=== PATIENT | male | born 1955 | race African-American/Black ===

== ENCOUNTER 2018-02-26 15:36 | Inpatient (IN) | payer BC ==
[~2018-02-26] VITALS: Ht 190.5 cm; Wt 91.9 kg
--- NOTE | 2018-02-26 16:04 | NUR ---
TO TX ROOM VIA W/C
--- NOTE | 2018-02-26 16:30 | NUR ---
PT AMBULATED TO BATHROOM WITH A STEADY GAIT, TO OBTAIN URINE SAMPLE.
--- NOTE | 2018-02-26 17:05 | NUR ---
IV INITATED, LABS AND FLU SWAB COLLECTED. PT DENIES ANY DIZZINESS AT THIS TIME. PT AWARE OF PLAN OF CARE AND WAIT TIME. MONITOR SHOWING 112 AT THIS TIME. CALL FORD WITHIN REACH, WILL CONTINUE TO MONITOR.
[2018-02-26 17:22] LABS: HEMATOCRIT 55.6 % (39.0-50.0); HEMOGLOBIN 17.8 g/dl (14.0-18.0); IMMATURE GRANULOCYTES 0.2 % (0.0-5.0); MEAN CELL VOLUME 94.2 fL CALC (80.0-100.0); MEAN CORPUSCULAR HGB 30.2 pG CALC (26.0-32.0); NEUT# 4.45 thou/uL (1.82-7.42); RED BLOOD COUNT 5.9 mill/uL (4.70-6.10); RED CELL DISTRI WIDTH 13.3 % (11.5-15.5)
[2018-02-26 17:25] LABS: URINE BILIRUBIN - DIPSTICK NEGATIVE (NEGATIVE); URINE BLOOD DIPSTICK SMALL (NEGATIVE); URINE COLOR YELLOW; URINE GLUCOSE - DIPSTICK >=1000 mg/dL (NEGATIVE); URINE KETONE 15 mg/dL (NEGATIVE); URINE LEUK ESTERASE NEGATIVE (NEGATIVE); URINE NITRITE - DIPSTICK NEGATIVE (Negative); URINE PROTEIN - DIPSTICK NEGATIVE (NEG-TRACE); URINE SPECIFIC GRAVITY <=1.005; URINE UROBILINOGEN - DIPSTICK 0.2 E.U./dL (0.2)
[2018-02-26 17:28] LABS: URINE CLARITY CLEAR
[2018-02-26 17:40] LABS: URINE WBC 0-2 WBC/hpf (0-5)
[2018-02-26 17:41] LABS: INFLUENZA A NONE DETECTED (NONE DETECT); INFLUENZA B NONE DETECTED (NONE DETECT)
--- NOTE | 2018-02-26 17:45 | NUR ---
PT AMBULATED TO BATHROOM WITH A STEADY GAIT. PT AWARE OF PENDING RESULTS AND WAIT TIME.
--- NOTE | 2018-02-26 18:15 | NUR ---
IV FLUIDS AND IV ABX INITIATED PRE ORDERED. PT AWARE OF PENDING RESULTS AND PLAN OF CARE. CALL FORD WITHIN REACH. [T AWARE OF BUSY ED AND WAIT TIME. CALL FORD WITHIN REACH.
[2018-02-26 18:18] LABS: BUN 27 mg/dL (8-23); BUN/CREATININE RATIO 15 (12-20 (CALC)); CARBON DIOXIDE 21 mmol/l (22-30); CHLORIDE 103 mmol/l (95-108); CREATININE 1.8 mg/dL (0.7-1.3); GFR 38 ML/MIN (>=60 (CALC)); GFR FOR AFR.AMER. 46 ML/MIN (>=60 (CALC)); SODIUM 142 mmol/l (137-146)
[2018-02-26 18:35] LABS: ANION GAP 24 (6-22 (CALC)); POTASSIUM 6.3 mmol/l (3.5-5.1)
--- NOTE | 2018-02-26 18:50 | NUR ---
PT REPORT TO INEZ PITTMAN.
--- NOTE | 2018-02-26 18:55 | NUR ---
SECOND IV INITIATED. PT IS AWARE OF PLAN FOR FURTHER TESTING AND WAIT TIME. CALL FORD WITHIN REACH.
--- NOTE | 2018-02-26 20:39 | NUR ---
PT TO CT.
--- NOTE | 2018-02-26 20:50 | NUR ---
REPORT CALLED TO MARANDA WILEY.
--- NOTE | 2018-02-26 20:59 | NUR ---
RETURNED FROM CT.
--- NOTE | 2018-02-26 21:18 | NUR ---
BRYCE HALEY. DR MENDOZA PINZON.
[2018-02-26 21:45] LABS: ALBUMIN 3.7 g/dL (3.2-5.0); BILIRUBIN, TOTAL 0.6 mg/dL (0.0-1.4); CREATININE 1.6 mg/dL (0.7-1.3); TOTAL PROTEIN 6.7 g/dL (6.3-8.2)
[2018-02-26 21:55] LABS: POTASSIUM 4.9 mmol/l (3.5-5.1)
--- NOTE | 2018-02-26 21:56 | NUR ---
INSULIN GTT INCREASED TO 10UNITS/HR. VERBAL ORDER DR DONALDSON. HYUNACK AND VERIFIED.
--- NOTE | 2018-02-26 22:58 | NUR ---
ACCUCHECK 377. DR DONALDSON AWARE. VERBAL ORDER DR DONALDSON, DECREASE INSULIN GTT TO 4 UNITS/HR, FOLLOW PROTOCAL. REBACK AND VERIFIED.
--- NOTE | 2018-02-26 23:13 | NUR ---
REPORT CALLED TO [facility] ICU.
--- NOTE | 2018-02-26 23:45 | NUR ---
PT TO ICU BED 5 VIA STRETCHER ACCOMPANIED BY ER STAFF. PT ABLE TO AMBULATE TO BED WITH MINIMAL ASSISTANCE. PT IS ALERT AND ORIENTED X3. ADMISSION ASSESSMENT COMPLETED AT THIS TIME. PT ORIENTED TO ROOM AND UNIT. PLAN OF CARE REVIEWED WITH PATIENT. PT VERBALIZED UNDERSTANDING. ACCUCHECK 358. LEVEMIR GIVEN PER MD ORDERS. WILL MAINTAIN INSULIN DRIP FOR 1 HOUR THEN DC PER MD ORDERS. CALL LIGHT IN REACH. WILL CONTINUE TO MONITOR.
[2018-02-27] VITALS (12 sets, daily range): BP systolic 113–161; BP diastolic 66–92
--- NOTE | 2018-02-27 00:01 | NUR ---
PT TO ICU ON MONITOR WITH RN AND IV PUMP.
--- NOTE | 2018-02-27 00:01 | NUR ---
PT AWAKE AND ALERT,COND STABLE.
--- NOTE | 2018-02-27 00:22 | NUR ---
ASSOCIATION EXECUTIVE IN ROOM DRAWING REPEAT LACTIC LEVEL.
--- NOTE | 2018-02-27 00:52 | NUR ---
LAB CALLED AND STATED THAT LACTIC IS NOW 2.4. DR LINDA ALREADY AWARE OF ELEVATION. TREATMENT ALREADY IN PROGRESS
--- NOTE | 2018-02-27 01:00 | NUR ---
PT RESTING IN BED WITH EYES CLOSED. PT AROUSES TO VERAL STIMULI. NO COMPLAINTS VOICED AT THIS TIME. ACCUCHECK 330. STOPPED INSULIN DRIP PER MD ORDER AFTER LEVEMIR GIVEN 1 HOUR AGO. CALL LIGHT IN REACH. WILL CONTINUE TO MONITOR.
--- NOTE | 2018-02-27 01:50 | NUR ---
PT RESTING IN BED WITH EYES CLOSED. RESP ARE EVEN AND UNLABORED. NO DISTRESS NOTED. CALL LIGHT IN REACH. WILL CONTINUE OT MONITOR.
--- NOTE | 2018-02-27 04:00 | NUR ---
PT RESTING IN BED WITH EYES CLOSED. RESP ARE EVEN AND UNLABORED. NO DISTRESS NOTED. LILIAM SR ON MONITOR. CALL LIGHT IN REACH. WILL CONTINUE TO M ONITOR
--- NOTE | 2018-02-27 05:02 | NUR ---
RUN BOAT OPERATOR INTO ROOM TO DRAW AM LABS
[2018-02-27 05:22] LABS: MEAN CELL VOLUME 96.2 fL CALC (80.0-100.0); MEAN CORPUSCULAR HGB CONC 32.2 g/L CALC (32.0-36.0); RED BLOOD COUNT 4.71 mill/uL (4.70-6.10); RED CELL DISTRI WIDTH 13.3 % (11.5-15.5)
[2018-02-27 05:28] LABS: HEMOGLOBIN 14.6 g/dl (14.0-18.0)
[2018-02-27 05:29] LABS: HEMATOCRIT 45.3 % (39.0-50.0); PLATELET COUNT 164 thou/uL (130-400)
[2018-02-27 05:33] LABS: ANION GAP 12 (6-22 (CALC)); BUN 21 mg/dL (8-23); BUN/CREATININE RATIO 17 (12-20 (CALC)); CALCULATED LDLCHOLESTEROL 154 mg/dL (62-129 (CALC)); CARBON DIOXIDE 23 mmol/l (22-30); CHLORIDE 118 mmol/l (95-108); CHOLESTEROL HDL RATIO 6.2 (<4.4 (CALC)); CREATININE 1.2 mg/dL (0.7-1.3); GFR > 60 ML/MIN (>=60 (CALC)); GFR FOR AFR.AMER. > 60 ML/MIN (>=60 (CALC)); HDL CHOLESTEROL 35 mg/dL (>=40); MAGNESIUM 2.2 mg/dL (1.6-2.3); POTASSIUM 4.6 mmol/l (3.5-5.1); SODIUM 148 mmol/l (137-146); TOTAL CHOLESTEROL 217 mg/dl (0-199); TOTAL TRIGLYCERIDES 136 mg/dl (30-149); VLDL CHOLESTROL 27 mg/dl (4-45 (CALC))
--- NOTE | 2018-02-27 06:00 | NUR ---
PT RESTING IN BED WITH EYES CLOSED. RESP ARE EVEN AND UNLABORED. NO DISTRESS NOTED. CALL LIGHT IN REACH. WILL CONTINUE TO MONITOR.
--- NOTE | 2018-02-27 08:36 | NUR ---
PT SEEN AWAKE, ALERT, ORIENTED X 3. LUNGS CLEAR, AMBULATORY IN ROOM WITHOUT IMBALANCE. PT STATES HE CONTINUES TO FEEL WEAKNESS THIS MORNING, ALTHOUGH IT HAS IMPROVED SINCE YESTERDAY. PT DENIES HX DIABETES.
--- NOTE | 2018-02-27 10:31 | NUR ---
PT SEEN BY DR QUEVEDO THIS MORNING, STATES WEAKNESS IMPROVED BUT NOT ALL GONE. NO FAMILY HX DIABETES. IVF STOPPED PER ORDER, PT NOW NPO UNTIL AFTER U/S ABDOMEN. NO DISTRESS, PT RESTS IN THE BED WATCHING TV.
--- NOTE | 2018-02-27 11:10 | NUR ---
PT TRANSFERRED TO MED/SURG ROOM 277 AT THIS TIME IN STABLE CONDITION. REPORT WAS TO JOHN WILEY.
--- NOTE | 2018-02-27 12:47 | NUR ---
REPORT RECRIVED FROM GIOVANI IN ICU, PT ARRIVED ON UNIT @ 1104 VIA WC, ALERT AND ORIENTED X 4, ORIENTED TO AND SETTLED IN ROOM, ORIENTED TO CALL FORD, DEDIED PAIN/DISCOMFORT, ALL NEEDS ADDRESSED, CALL FORD IN REACH.
--- NOTE | 2018-02-27 19:00 | NUR ---
REPORT RECIEVEN FROM [facility]. PT IN BED. NO COMPLAINTS OF PAIN VOICED. NO DISTRESS NOTED.
[2018-02-28 00:24] VITALS: BP 117/75
[2018-02-28 04:21] VITALS: BP 141/84
[2018-02-28 05:05] LABS: HEMOGLOBIN 14.9 g/dl (14.0-18.0); IMMATURE GRANULOCYTES 0.2 % (0.0-5.0); MEAN CELL VOLUME 95.7 fL CALC (80.0-100.0); MEAN CORPUSCULAR HGB 30.3 pG CALC (26.0-32.0); MEAN CORPUSCULAR HGB CONC 31.7 g/L CALC (32.0-36.0); NEUT# 2.81 thou/uL (1.82-7.42); RED BLOOD COUNT 4.91 mill/uL (4.70-6.10); RED CELL DISTRI WIDTH 13.1 % (11.5-15.5)
[2018-02-28 05:22] LABS: ALBUMIN 3.3 g/dL (3.2-5.0); ALKALINE PHOSPHATASE 111 u/l (38-126); ANION GAP 9 (6-22 (CALC)); BILIRUBIN, TOTAL 0.7 mg/dL (0.0-1.4); BUN 20 mg/dL (8-23); BUN/CREATININE RATIO 18 (12-20 (CALC)); CARBON DIOXIDE 27 mmol/l (22-30); CHLORIDE 111 mmol/l (95-108); CREATININE 1.2 mg/dL (0.7-1.3); GFR > 60 ML/MIN (>=60 (CALC)); GFR FOR AFR.AMER. > 60 ML/MIN (>=60 (CALC)); MAGNESIUM 1.9 mg/dL (1.6-2.3); POTASSIUM 4.1 mmol/l (3.5-5.1); SGOT/AST 77 u/l (19-48); SODIUM 143 mmol/l (137-146); TOTAL PROTEIN 6.3 g/dL (6.3-8.2)
--- NOTE | 2018-02-28 07:00 | NUR ---
RECIEVED REPORT FROM SEAMUS WILEY. PT ASLEEP AT THIS TIME. NO S/S OF DISTRESS.
--- NOTE | 2018-02-28 07:40 | NUR ---
PT RESTING IN BED WITH EYES CLOSED. NO S/S OF DISTRESS. ASSESMENT COMPLETED AT THIS TIME(SEE INTERVENTIONS). LUNGS CLEAR, BOWEL SOUNDS ACTIVE, HEART SOUNDS NORMAL, NO SWELLING OR EDEMA. #20 LH AND #20 RAC FLUSH WELL, NO REDNESS OR EDEMA. PT HAVING NO COMPLAINTS AT THIS TIME. CALL FORD IN REACH. WILL CONTINUE TO MONITOR.
[2018-02-28 11:15] VITALS: BP 131/86
--- NOTE | 2018-02-28 12:00 | NUR ---
RESTING IN CHAIR AT THIS TIME. NO S/S OF DISTRESS. WILL CONTINUE TO MONITOR
--- NOTE | 2018-02-28 13:48 | NUR ---
Patient not currently on any home medications. Patient counseled on the uses of medications he is taking in the hospital. Patient had no further questions.
[2018-02-28] MEDS ORDERED: JANUVIA50 MG PO (14:56)
[2018-02-28] MEDS ORDERED: AMARYL2 MG PO (14:56)
[2018-02-28] MEDS ORDERED: LISINOPRIL5 MG PO (14:57)
--- NOTE | 2018-02-28 16:30 | NUR ---
ENTERED ROOM VISITOR AT BEDSIDE, WENT IN WITH DETAIL OF [employer] DIABETIC DIET INFORMATION, MYPLATE INFORMATION, DISCUSSED NEW MEDICATION PRESCRIBED TO PT. PT VERBALLY EDUCATED ON CHECKING BLOOD SUGAR, PT DEMONSTRATED USE WITH HOSPITAL ACCUCHECK MACHINE. DISCHARGE PACKET PROVIDED, PT SIGNED PAPERWORK AND IV'S X2 REMOVED AND COVERED WITH GAUZE AND TAPE. PT VOICES NO COMPLAINTS, VERBALIZED UNDERSTANDING TO TEACHING.
--- NOTE | 2018-02-28 16:58 | NUR ---
Discharge instructions given. Patient verbalizes understanding of same. Discharged in stable condition via Ambulatory to Home with family. All belongings sent with pt.
== END 2018-02-28 16:58 | disposition home or self-care (01) | DRG 638 ==
LOC: ED 15:36 → ED-I 16:21 → ED 16:21 → ED-I 20:00 → ED 22:20 → ICU 22:21 → MS2 22:21
PROVIDERS: Emergency Medicine; Family Medicine; ADMIT Internal Medicine; ATTEND Internal Medicine Nephrology
DX: E11.10 Type 2 diabetes mellitus with ketoacidosis without coma (principal); N17.9 Acute kidney failure, unspecified; I10 Essential (primary) hypertension; E86.0 Dehydration; E78.5 Hyperlipidemia, unspecified; K72.90 Hepatic failure, unspecified without coma; I49.1 Atrial premature depolarization; N28.1 Cyst of kidney, acquired
CPT/HCPCS: Q9967

== ENCOUNTER 2019-07-31 | Emergency (ER) | payer MEDICARE ==
[~2019-07-31] MED LIST: AMARYL2 MG PO; JANUVIA50 MG PO; LISINOPRIL5 MG PO
[2019-07-31] MEDS ORDERED: DIABETES MED (21:12)
[2019-07-31 21:58] LABS: URINE BILIRUBIN - DIPSTICK NEGATIVE (NEGATIVE); URINE BLOOD DIPSTICK TRACE-INTACT (NEGATIVE); URINE COLOR YELLOW; URINE GLUCOSE - DIPSTICK NEGATIVE (NEGATIVE); URINE KETONE TRACE mg/dL (NEGATIVE); URINE LEUK ESTERASE NEGATIVE (NEGATIVE); URINE NITRITE - DIPSTICK NEGATIVE (Negative); URINE PROTEIN - DIPSTICK TRACE mg/dL (NEG-TRACE); URINE SPECIFIC GRAVITY 1.025; URINE UROBILINOGEN - DIPSTICK 0.2 E.U./dL (0.2)
[2019-07-31 22:00] LABS: HEMATOCRIT 48.8 % (39.0-50.0); HEMOGLOBIN 15.7 g/dl (14.0-18.0); IMMATURE GRANULOCYTES 0.4 % (0.0-5.0); MEAN CELL VOLUME 90.7 fL CALC (80.0-100.0); MEAN CORPUSCULAR HGB 29.2 pG CALC (26.0-32.0); MEAN CORPUSCULAR HGB CONC 32.2 g/dL CAL (32.0-36.0); NEUT# 2.32 thou/uL (1.82-7.42); RED BLOOD COUNT 5.38 mill/uL (4.70-6.10); RED CELL DISTRI WIDTH 12.7 % (11.5-15.5)
[2019-07-31 22:18] LABS: ALKALINE PHOSPHATASE 132 u/l (38-126); ANION GAP 15 (6-22 (CALC)); BUN 19 mg/dL (8-23); BUN/CREATININE RATIO 11 (12-20 (CALC)); CARBON DIOXIDE 26 mmol/l (22-30); CHLORIDE 104 mmol/l (95-108); CREATININE 1.8 mg/dL (0.7-1.3); GFR 38 ML/MIN (>=60 (CALC)); GFR FOR AFR.AMER. 46 ML/MIN (>=60 (CALC)); POTASSIUM 4.6 mmol/l (3.5-5.1); PROTHROMBIN TIME 10.7 SECONDS (9.0-12.5); SGOT/AST 42 u/l (19-48); SODIUM 141 mmol/l (137-146)
[2019-07-31 22:24] LABS: ALBUMIN 4.8 g/dL (3.2-5.0); BILIRUBIN, TOTAL 0.4 mg/dL (0.0-1.4); TOTAL PROTEIN 8.4 g/dL (6.3-8.2)
[2019-07-31 22:30] LABS: MYOGLOBIN 101 ng/mL (0 - 121)
== END 2019-07-31 23:00 | disposition home or self-care (01) ==
PROVIDERS: Family Medicine
DX: R42 Dizziness and giddiness (principal); I10 Essential (primary) hypertension; S01.21XA Laceration without foreign body of nose, initial encounter; E11.9 Type 2 diabetes mellitus without complications; W18.39XA Other fall on same level, initial encounter; Y92.000 Kitchen of unspecified non-institutional (private) residence as the place of occurrence of the external cause

== ENCOUNTER 2019-08-01 15:00 | Emergency (ER) | payer MEDICARE ==
[~2019-08-01 15:00] MED LIST changes: +DIABETES MED
== END 2019-08-01 15:07 | disposition left against medical advice (07) ==
LOC: ED 15:00 → LWOBS 15:07
DX: Z53.21 Procedure and treatment not carried out due to patient leaving prior to being seen by health care provider (principal)

== ENCOUNTER 2023-10-27 18:48 | Observation (INO) | payer MEDICARE ==
[~2023-10-27] VITALS: Ht 190.5 cm; Wt 92.4 kg
[2023-10-27] VITALS (13 sets, daily range): BP systolic 107–139; BP diastolic 69–113
[2023-10-27] MEDS ORDERED: NITROGLYCERIN 0.4 MG/TAB SL ONE (18:55)
[2023-10-27] MEDS ORDERED: ASPIRIN 81 MG/TAB PO ONE (18:55)
[2023-10-27] MEDS ORDERED: FARXIGA5 MG (19:03)
[2023-10-27 19:16] LABS: BASO% 1.1 % (0-3); EOS% 6.8 % (0-8); HEMOGLOBIN 15.4 g/dl (14.0-18.0); LYMPH% 54.6 % (15-41); MEAN CORPUSCULAR HGB 29.6 pG CALC (26.0-32.0); MEAN CORPUSCULAR HGB CONC 31.4 g/dL CAL (32.0-36.0); MONO% 10.7 % (2-13); NEUT# 1.22 thou/uL (1.82-7.42); NEUT% 26.8 % (42-76); RED BLOOD COUNT 5.21 mill/uL (4.70-6.10); RED CELL DISTRI WIDTH 13.2 % (11.5-15.5)
[2023-10-27 19:37] LABS: ALBUMIN 4.8 g/dL (3.2-5.0); ALKALINE PHOSPHATASE 120 u/l (38-126); ANION GAP 9 (6-22 (CALC)); BUN 18 mg/dL (8-23); BUN/CREATININE RATIO 11 (12-20 (CALC)); CARBON DIOXIDE 29 mmol/l (22-30); CHLORIDE 108 mmol/l (95-108); CREATININE 1.7 mg/dL (0.7-1.3); ESTIMATED GFR 43 ML/MIN (>=90 (CALC)); LIPASE 170 u/l (23-300); SGOT/AST 49 u/l (19-48); SODIUM 142 mmol/l (137-146); TOTAL PROTEIN 8.5 g/dL (6.3-8.2)
[2023-10-27 19:38] LABS: BILIRUBIN, TOTAL 0.6 mg/dL (0.2-1.3)
[2023-10-27] MEDS ORDERED: MAGNESIUM HYDROXIDE 30 ML UDC PO PRN (20:15)
[2023-10-27] MEDS ORDERED: SODIUM CHLORIDE 0.9% 1,000 ML IV PRN (20:15)
[2023-10-27] MEDS ORDERED: MORPHINE SULFATE 4 MG/ML VIAL IV PRN (20:15)
[2023-10-27] MEDS ORDERED: ACETAMINOPHEN 325 MG/TAB PO PRN (20:15)
[2023-10-27] MEDS ORDERED: NITROGLYCERIN 0.4 MG/TAB SL PRN (20:15)
[2023-10-27] MEDS ORDERED: INSULIN LISPRO 100 UNITS/ML ML SC SCH (21:00)
[2023-10-27] MEDS ORDERED: METOPROLOL TARTRATE 25 MG/TAB PO SCH (21:00)
[2023-10-27] MEDS ORDERED: ATORVASTATIN CALCIUM 40 MG/TAB PO SCH (21:00)
[2023-10-27] MEDS ORDERED: ENOXAPARIN SODIUM 40 MG/0.4 ML SYR SC SCH (21:00)
[2023-10-28 04:22] VITALS: BP 121/79
[2023-10-28 04:54] VITALS: BP 121/79
[2023-10-28 05:59] LABS: ALBUMIN 3.9 g/dL (3.2-5.0); BILIRUBIN, TOTAL 0.4 mg/dL (0.2-1.3); CHOLESTEROL HDL RATIO 3.1 (<4.4 (CALC)); CREATININE 1.4 mg/dL (0.7-1.3); POTASSIUM 4.4 mmol/l (3.5-5.1); TOTAL PROTEIN 6.8 g/dL (6.3-8.2)
[2023-10-28 06:12] LABS: BASO% 1.1 % (0-3); EOS% 7.9 % (0-8); HEMATOCRIT 46.9 % (39.0-50.0); IMMATURE GRANULOCYTES 0.3 % (0.0-5.0); LYMPH% 44.6 % (15-41); MEAN CELL VOLUME 93.6 fL CALC (80.0-100.0); MEAN CORPUSCULAR HGB 29.9 pG CALC (26.0-32.0); MONO% 12.9 % (2-13); NEUT# 1.26 thou/uL (1.82-7.42); NEUT% 33.2 % (42-76); RED BLOOD COUNT 5.01 mill/uL (4.70-6.10); RED CELL DISTRI WIDTH 13.2 % (11.5-15.5)
[2023-10-28 07:09] VITALS: BP 136/91
[2023-10-28] MEDS ORDERED: ASPIRIN 81 MG/TAB PO SCH (09:00)
[2023-10-28] MEDS ORDERED: ASPIRIN 81 LOW81 MG PO (10:37)
[2023-10-28 11:00] VITALS: BP 122/73
== END 2023-10-28 11:16 | disposition home or self-care (01) ==
LOC: ED 18:48 → ED-I 19:59 → ED 19:59 → MS2 20:37
PROVIDERS: Nurse Practitioner; ADMIT Student in an Organized Health Care Education/Training Program; ATTEND Student in an Organized Health Care Education/Training Program
DX: R07.9 Chest pain, unspecified (principal); I45.10 Unspecified right bundle-branch block; I10 Essential (primary) hypertension; E11.9 Type 2 diabetes mellitus without complications; Z79.84 Long term (current) use of oral hypoglycemic drugs
CPT/HCPCS: J1650